=== PATIENT | male | born 1955 | race Two or more races ===

== ENCOUNTER 2019-12-03 22:08 | Emergency (ER) | payer SELFPAY ==
[~2019-12-03] VITALS: Ht 190.5 cm; Wt 68.0 kg
[2019-12-04 00:25] LABS: *AMPHETAMINES SCREEN URINE PRESUMTIVE POSITIVE (NEGATIVE); *BARBITURATES SCREEN URINE NEGATIVE (NEGATIVE); *BENZODIAZEPINES SCREEN URINE NEGATIVE (NEGATIVE); *COCAINE SCREEN URINE NEGATIVE (NEGATIVE)
[2019-12-04 00:26] LABS: CANNABINOID URINE SCREEN PRESUMTIVE POSITIVE (NEGATIVE); METHADONE URINE SCREEN NEGATIVE (NEGATIVE); OPIATES URINE SCREEN NEGATIVE (NEGATIVE); PHENCYCLIDINE URINE SCREEN NEGATIVE (NEGATIVE)
[2019-12-04 00:30] VITALS: BP 134/75
== END 2019-12-04 00:32 | disposition home or self-care (01) ==
LOC: ER 22:08
DX: Z02.2 Encounter for examination for admission to residential institution (principal); F15.10 Other stimulant abuse, uncomplicated; I51.9 Heart disease, unspecified; F19.10 Other psychoactive substance abuse, uncomplicated
CPT/HCPCS: 80305; 99283